=== PATIENT | female | born 1975 | race Caucasian/White ===

== ENCOUNTER 2019-10-22 19:29 | Emergency (ER) | payer BC, SELFPAY ==
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
[2019-10-22 19:37] VITALS: BP 161/74; PULSE 106; RESP 16; TEMP 36.3; O2SAT 100; BMI 29.7
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
[2019-10-22] MEDS: HYDROMORPHONE 0.5 MG INJ IV (19:52)
[2019-10-22] MEDS: SODIUM CHLORIDE 0.9% 1,000 ML 125 ML IV (19:55)
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
[2019-10-22 20:00] LABS: Add Manual Diff / Slide Review NO; Basophils Absolute Auto 100 /uL (0-100); Basophils Percent Auto 0.3 % (0-2); Eosinophils Absolute Auto 100 /uL (0-450); Eosinophils Percent Auto 0.6 % (2-4); Hematocrit 37.5 % (36-46); Hemoglobin 12.6 g/dL (12.0-16.0); Lymphocytes Absolute Auto 1400 /uL (1100-4500); Lymphocytes Percent Auto 7.3 % (25-40); Mean Corpuscular HGB Conc 33.6 % (30-36); Mean Corpuscular Volume 95.5 fL (80-100); Monocytes Absolute Auto 1100 /uL (0-900); Monocytes Percent Auto 5.4 % (3-14); Neutrophils Absolute Auto 17100 /uL (1500-7000); Neutrophils Percent Auto 86.4 % (50-75); Platelet Count 376 X10^3/uL (150-400); Red Blood Cell Count 3.93 X10^6/uL (4.0-5.2); Red Cell Distribution Width 13.3 % (11.6-14.8); White Blood Cell Count 19.8 X10^3/uL (4.5-11.0)
[2019-10-22 20:16] LABS: Blood Urea Nitrogen 7 mg/dL (7-17); Calcium 9.2 mg/dL (8.4-10.2); Carbon Dioxide 21 mmol/L (22-32); Chloride 103 mmol/L (98-107); Estimated Glomerular Filt Rate > 60.0 mL/min (>60); Glucose 141 mg/dL (70-100); HEMOLYSIS < 15 (0-50); Potassium 3.5 mmol/L (3.4-5.1); Sodium 133 mmol/L (137-145)
[2019-10-22 21:02] LABS: Bacteria Urine Few (2-10); Culture Indicated Urine Specimen Cultured; RBC Urine 0-1/HPF (0-5/HPF); Squamous Epithelial Cell Urine 0-1 /HPF (0-5/HPF); WBC Urine 5-10/HPF (0-5/HPF)
[2019-10-22] MEDS: HYDROCODONE/ACET 5/325 PREPACK 1 BOTTLE MISC (21:23)
[2019-10-22] MEDS: ONDANSETRON 4 MG ODT PREPACK 1 BOTTLE MISC (21:23)
[2019-10-22 21:29] VITALS: BP 146/73; PULSE 88; RESP 16; O2SAT 99
== END 2019-10-22 21:29 | disposition home or self-care (01) ==
PROVIDERS: Emergency Provider Emergency Medicine
DX: S30.1XXA Contusion of abdominal wall, initial encounter (principal); I10 Essential (primary) hypertension; E11.9 Type 2 diabetes mellitus without complications; M54.9 Dorsalgia, unspecified; Y93.79 Activity, other specified sports and athletics; W22.8XXA Striking against or struck by other objects, initial encounter
CPT/HCPCS: 36415; 71260; 74177; 80048; 81003; 81015; 81025; 85025; 87077; 87086; 87186; 96361; 96374; 99284; J1170

== ENCOUNTER → 2020-02-16 16:03 | Outpatient (CLI) | payer BC, SELFPAY ==
--- NOTE | 2020-02-16 16:06 | DI.MRI.S_ITS ---
PROCEDURE: MR PELVIS WO/W CON INDICATIONS: Eval Lg Left Ovarian Mass seen on CT TECHNIQUE: Coronal HASTE, sagittal breath-hold T2 FSE; axial T1 FSE with and without fat saturation through the pelvis. Optional long- and short-axis uterine nonbreath-hold T2 FSE through the uterus. Sagittal or axial dynamic VIBE during administration of contrast. Post-contrast axial or coronal VIBE/2-D FLASH with fat saturation from the iliac crests to the symphysis. Optional diffusion weighted imaging and ADC may be performed. COMPARISON: [facility], CR, CHEST 2 VIEW, 03/26/2016, 22:17. [facility], US, US PELVIC COMPLETE, 01/19/2020, 8:46. [facility], CT, CT CHEST ABD PEL W CON, 10/22/2019, 19:44. FINDINGS: Image quality: Excellent. Uterus: Uterus is normal in size. Endometrium is normal in thickness. Junctional zone is normal in thickness at 12 mm or less. Adnexa: The left ovary is not seen as a normal structure. There is a large solid mass at the left adnexa measuring up to 6.4 cm AP, 7.1 cm craniocaudad, and 5.6 cm transverse. By appearance this structure is not exophytic from the serosal surface of the left uterus, but rather appears centered on the expected position of the left ovary. This shows heterogeneous internal enhancement, is not associated with adjacent adenopathy, and no distant metastatic disease is found. What appears to be a right-sided posteriolateral lower uterine segment myometrial intramural fibroid also is seen, and measures up to 3.1 x 2.6 cm. The uterus appears anteverted. It also appears somewhat rightward deviated within the lower pelvis by mass effect from the left-sided mass, and several small nabothian cysts are seen at the cervix.. Urinary system: Bladder wall is normal in thickness. Distal ureters are non distended. Urethra appears normal in morphology. Nodes and vessels: No pelvic or inguinal adenopathy by size criteria. Iliac vessels are normal in size. Bowel and peritoneum: No pathologic free pelvic fluid. Inferior colon and small bowel loops are normal in caliber. Soft tissues: No inguinal hernias. No findings of pelvic floor incompetence in the absence of provocation. Bones: Marrow demonstrates normal overall signal. IMPRESSION: Large heterogeneous ovoid right adnexal solid mass, enhancing, measuring up to 6.4 x 7.1 x 5.6 cm, presumably ovarian in origin. Presumed malignancy. Small right posterolateral lower uterine segment intramural fibroid incidentally noted. No adenopathy or evidence of peritoneal carcinomatosis is found. Dictated by: Dany Bhatti M.D. on 02/17/2020 at 9:23 Approved by: Dany Bhatti M.D. on 02/17/2020 at 9:40
== END ==
PROVIDERS: PCP Physician Assistant; Referring Provider Obstetrics & Gynecology; Visit Provider Obstetrics & Gynecology
DX: N83.8 Other noninflammatory disorders of ovary, fallopian tube and broad ligament (principal); R19.09 Other intra-abdominal and pelvic swelling, mass and lump; R93.5 Abnormal findings on diagnostic imaging of other abdominal regions, including retroperitoneum
CPT/HCPCS: 72197

== ENCOUNTER → 2020-02-24 17:03 | Outpatient (CLI) | payer BC, SELFPAY ==
[2020-02-24 18:22] LABS: Cancer Antigen 125 6.2 U/mL (0-35)
[2020-02-24 18:25] LABS: Carcinoembryonic Antigen < 0.3 ng/mL (0.1-3.0)
[2020-02-25 07:08] LABS: Cancer (Carbohydrate) Ag 19-9 4 U/mL (0-35)
[2020-02-27 13:09] LABS: Human Epididymis Prot 4 60.5 pmol/L (0.0-63.6)
== END ==
PROVIDERS: PCP Physician Assistant; Referring Provider Obstetrics & Gynecology; Visit Provider Obstetrics & Gynecology
DX: N83.8 Other noninflammatory disorders of ovary, fallopian tube and broad ligament (principal)
CPT/HCPCS: 36415; 82378; 86301; 86304; 86305

== ENCOUNTER 2024-05-30 08:01 | Emergency (ER) | payer OTHER, SELFPAY ==
[2024-05-30] VITALS (18 sets, daily range): BP systolic 128–176; BP diastolic 62–92; PULSE 95–123; RESP 16–21; TEMP 36.7; O2SAT 96–100; BMI 26.6
--- NOTE | 2024-05-30 08:13 | EKG_ITS ---
[address] [address] Test Date: 2024-05-30 Pat Name: Mary Lincoln Department: Room: Gender: Female [employer] Director: INA : 1975 Requested By: Order Number: [id number] Reading MD: Tristan Shabazz Measurements Intervals [place] Rate: 117 P: 50 [place]: 122 QRS: 6 QRSD: 78 T: 41 QT: 334 QTc: 465 Interpretive Statements Sinus tachycardia with occasional premature ventricular complexes Electronically Signed On 06-01-2024 18:55:59 PST by Tristan Shabazz
--- NOTE | 2024-05-30 08:22 | ED_ITS ---
HPI - Arrhythmia/Palpitations General Chief Complaint: Arrhythmia/Palpitations Stated Complaint: Heart beating hard Time Seen by Provider: 05/30/24 08:12 Source: patient Mode of arrival: Ambulatory History of Present Illness HPI narrative: Patient here for constant palpitations since yesterday morning. Pain no syncope no dyspnea. No changes in medication for blood pressure cholesterol or diabetes. No history of thyroid problems. No family history of arrhythmia or heart problems. Denies any new stressors in life. No recent illness nausea vomiting diarrhea or risks for dehydration. No black or bloody stools. No polyuria polydipsia. Patient does have history of diabetes hypertension hyperlipidemia. Denies any previous cardiac problems. No prior history of blood clots in legs or lungs. Denies any nausea sweating or dyspnea. Related Data Home Medications Medication Instructions Recorded Confirmed apple cider vinegar 300 mg tablet 300 mg PO BID 01/19/20 05/30/24 flaxseed oil 1,000 mg capsule 1,000 mg PO DAILY 01/19/20 05/30/24 ([place]-3 Flaxseed Oil) lisinopril 5 mg tablet 5 mg PO DAILY 01/19/20 05/30/24 mecobalamin (vitamin B12) 1,000 1,000 mcg PO DAILY 01/19/20 05/30/24 mcg chewable tablet metformin 500 mg tablet 500 mg PO BID 01/19/20 05/30/24 rosuvastatin 10 mg tablet 10 mg PO ONCE PM cholesterol 05/30/24 05/30/24 Previous Rx's Medication Instructions Recorded metoprolol succinate 25 mg capsule 25 mg PO DAILY #30 ea 05/30/24 sprinkle, ext. release 24 hr Allergies Allergy/AdvReac Type Severity Reaction Status Date / Time No Known Drug Allergies Allergy Unverified 01/19/20 08:26 Review of Systems Review of Systems Narrative: GENERAL: Negative chills, fatigue, malaise, fever, sweats. HEENT: Negative sinus pain, ear pain, sore throat RESPIRATORY: Negative dyspnea, cough CARDIOVASCULAR: Negative chest pain, positive palpitations GASTROINTESTINAL: Negative nausea, vomiting, abdominal pain : Negative dysuria, frequency, hematuria MUSCULOSKELETAL: Negative muscle or bony pain SKIN: Negative rash, skin lesions NEUROLOGIC: Negative weakness, numbness ROS Unobtainable: All systems reviewed & are unremarkable except as noted in HPI and below Patient History Medical History (Updated 05/30/24 @ 14:00 by Viry Hartley MD) Vision disorder Acne Trouble breathing Chicken pox Family History (Updated 01/19/20 @ 21:42 by Matilde Gamino) Father Diabetes mellitus Hypertension Hyperlipidemia Mother Hyperlipidemia Social History Smoking Status: Former smoker Smoking Status: Former smoker Exam Narrative Exam Narrative: GENERAL: in no distress, not toxic not dyspneic HEAD: Normocephalic. EYES: Pupils equal round ENT: Mucous membranes moist. NECK: Trachea midline. No thyromegaly CARDIOVASCULAR: Regular rate and rhythm, is tachycardic, no murmurs RESPIRATORY: Clear to auscultation. Breath sounds equal bilaterally. No wheezes, rales, or rhonchi. GASTROINTESTINAL: Abdomen soft, non-tender EXTREMITIES: No gross deformities. BACK: No flank tenderness. NEURO: AOx4. Clear speech SKIN: Warm and dry PSYCH: Not anxious, is cooperative Initial Vital Signs Initial Vital Signs: Vital Signs Pulse Rate 123 H 05/30/24 08:10 Pulse Oximetry 100 05/30/24 08:10 Course Orders Ordered: Discontinued Medications Sodium Chloride (Normal Saline 0.9%) 1,000 mls @ 1,000 mls/hr IV BOLUS ONE Stop: 05/30/24 09:30 Last Infusion: 05/30/24 09:50 Dose: Infused Documented By: Admin: 05/30/24 08:47 Dose: 1,000 mls/hr Documented By: CYDNEY Metoprolol Succinate (Metoprolol Er 25 Mg Tablet) 25 mg PO NOW ONE Stop: 05/30/24 12:43 Last Admin: 05/30/24 12:46 Dose: 25 mg Documented By: JEFFY Vital Signs Vital signs: Vital Signs - 8 hr 05/30/24 08:10 05/30/24 08:11 05/30/24 08:11 Temperature Pulse Rate 123 H 122 H Respiratory Rate Blood Pressure 176/92 H Pulse Oximetry 100 100 Oxygen Delivery Method 05/30/24 08:13 05/30/24 08:30 05/30/24 08:30 Temperature 98.1 F Pulse Rate 121 H 110 H Respiratory Rate 20 19 Blood Pressure 176/91 H 161/77 H Pulse Oximetry 100 97 Oxygen Delivery Method Room Air 05/30/24 09:00 05/30/24 09:00 05/30/24 09:30 Temperature Pulse Rate 109 H Respiratory Rate 16 Blood Pressure 137/65 151/67 H Pulse Oximetry 98 Oxygen Delivery Method 05/30/24 09:30 05/30/24 09:57 05/30/24 09:57 Temperature Pulse Rate 109 H 111 H Respiratory Rate 20 19 Blood Pressure 135/75 Pulse Oximetry 98 99 Oxygen Delivery Method 05/30/24 10:00 05/30/24 10:00 05/30/24 10:30 Temperature Pulse Rate 104 H Respiratory Rate 17 Blood Pressure 132/69 128/66 Pulse Oximetry 97 Oxygen Delivery Method 05/30/24 10:30 05/30/24 11:00 05/30/24 11:00 Temperature Pulse Rate 107 H 106 H Respiratory Rate 20 Blood Pressure 134/63 Pulse Oximetry 97 96 Oxygen Delivery Method 05/30/24 11:30 05/30/24 11:30 05/30/24 12:00 Temperature Pulse Rate 106 H Respiratory Rate 18 Blood Pressure 147/64 H 133/66 Pulse Oximetry 98 Oxygen Delivery Method Room Air 05/30/24 12:00 05/30/24 12:30 05/30/24 12:30 Temperature Pulse Rate 101 H 106 H Respiratory Rate 18 Blood Pressure 132/62 Pulse Oximetry 97 98 Oxygen Delivery Method Room Air 05/30/24 12:46 05/30/24 13:00 05/30/24 13:00 Temperature Pulse Rate 109 H 101 H Respiratory Rate 20 Blood Pressure 132/62 137/76 Pulse Oximetry 98 Oxygen Delivery Method Room Air 05/30/24 13:29 Temperature Pulse Rate 95 H Respiratory Rate Blood Pressure 130/67 Pulse Oximetry Oxygen Delivery Method MDM - Arrhythmia/Palpitations Lab Data 05/30/24 08:25 05/30/24 08:25 Labs: Lab Results 05/30/24 05/30/24 Range/Units 08:25 10:00 WBC 11.4 H (4.5-11.0) X10^3/uL RBC 4.15 (4.0-5.2) X10^6/uL Hgb 14.4 (12.0-16.0) g/dL Hct 41.8 (36-46) % MCV 100.7 H (80-100) fL MCH 34.6 H (26-34) PG MCHC 34.4 (30-36) % RDW 15.2 H (11.6-14.8) % Plt Count 227 (150-400) X10^3/uL Neut % (Auto) 79.3 H (50-75) % Lymph % (Auto) 10.5 L (25-40) % [place] % (Auto) 7.5 (3-14) % Eos % (Auto) 2.3 (2-4) % Baso % (Auto) 0.4 (0-2) % Neut # (Auto) 9000 H (5636-5383) /uL Lymph # (Auto) 1200 (6295-9327) /uL [place] # (Auto) 900 (0-900) /uL Eos # (Auto) 300 (0-450) /uL Baso # (Auto) 0 (0-100) /uL PT 11.4 (9.4-12.5) SECONDS INR 1.0 (0.9-1.3) APTT 30 (25.1-36.5) SECONDS D-Dimer 296 (<500) ng/ml Sodium 134 L (137-145) mmol/L Potassium 4.3 (3.4-5.1) mmol/L Chloride 99 (98-107) mmol/L Carbon Dioxide 18 L (22-32) mmol/L BUN 4 L (7-17) mg/dL Creatinine 0.30 L (0.52-1.04) mg/dL Estimated GFR > 60 (>60) mL/min BUN/Creatinine Ratio 13.3 (6-22) Glucose 309 H (70-100) mg/dL Calcium 9.7 (8.4-10.2) mg/dL Magnesium 1.4 L (1.6-2.3) mg/dL Total Bilirubin 2.0 H (0.2-1.3) mg/dL AST 78 H (14-36) IU/L ALT 85 H (<35) IU/L Alkaline Phosphatase 122 (38-126) U/L Total Creatine Kinase 22 L (30-135) U/L Troponin I < 0.012 (0.01-0.034) ng/mL Total Protein 6.9 (6.3-8.2) g/dL Albumin 4.5 (3.5-5.0) g/dL Globulin 2.4 (1.7-4.1) g/dL Albumin/Globulin Ratio 1.9 (1.0-2.8) TSH 1.47 (0.47-4.68) uIU/mL U Opiates 300ng/mL cut Negative (Negative) Ur Oxycodone Screen Negative (Negative) Urine Methadone Screen Negative (Negative) Ur Barbiturates Screen Negative (Negative) U Tricyclic Antidepress Negative (Negative) Ur Phencyclidine Scrn Negative (Negative) Ur Amphetamines Screen Negative (Negative) U Methamphetamines Scrn Negative (Negative) Ur MDMA Scrn (Ecstasy) Negative (Negative) U Benzodiazepines Scrn Negative (Negative) Urine Cocaine Screen Negative (Negative) U Marijuana (THC) Screen Negative (Negative) Urine pH Normal (Normal) Urine Specific [place] Normal (Normal) Ur Creatinine Normal (Normal) Imaging Data Chest x-ray: Radiologist's Impresson: [address] [address] XRay Report Signed Patient: Esau Velazquez MR#: [id number] : 1975 Acct:[id number] Age/Sex: 49 / F Date of Service: 05/30/24 Loc: ED Accession Number: [id number] Procedure: XR chest 1V Ordering Provider: Viry Hartley MD PROCEDURE: XR CHEST 1V INDICATIONS: Chest pain TECHNIQUE: One view of the chest was acquired. COMPARISON: None. FINDINGS: Surgical changes and devices: None. Lungs and pleura: Lungs are clear. No pleural effusions or pneumothorax. Mediastinum: Mediastinal contours appear normal. Heart size is normal. Bones and chest wall: No suspicious bony lesions. Overlying soft tissues appear unremarkable. IMPRESSION: No acute cardiopulmonary abnormality is seen. Dictated by: Tito Vega M.D. on 05/30/2024 at 9:38 Approved by: Tito Vega M.D. on 05/30/2024 at 9:39 Echocardiogram: Radiologist's Impresson: [address] [address] Echocardiography Report Signed Patient: Esau Velazquez MR#: [id number] : 1975 Acct:[id number] Age/Sex: 49 / F Date of Service: 05/30/24 Loc: ED Accession Number: [id number] Procedure: EC echo doppler complete Ordering Provider: Viry Hartley MD [place] +---------+ Hospital : : [address] [place] [address] . : : [place] : : [id number] : : Phone: [phone] Echocardiogram Report + + :Name: ESAU VELAZQUEZ Study Date: 05/30/2024 Height: 67 in : :[facility] ReadingLocation: Weight: 170 lb : : Gender: Female BSA: 1.9 m2 : :: 1975 Age: 49 yrs BP: 132/69 mmHg: :Reason For Study: CHEST PAIN : :Ordering Physician: SHIRAZ, : :VIRY Performed By: Juancarlos Dong : :Referring: Provider Jhony Lakhani : + + Interpretation Summary The patient was in sinus tachycardia with heart rates between 103-107 bpm during the exam. The left ventricle is normal in size. The ejection fraction is estimated to be 65-70%. The right ventricle is normal in size and function. No significant valvular pathology seen Procedure: A two-dimensional transthoracic echocardiogram with color flow and Doppler was performed. The study quality was technically good. There is no prior echocardiogram noted for this patient. The patient was in sinus tachycardia with heart rates between 103-107 bpm during the exam. Left Ventricle: The left ventricle is normal in size. There is normal left ventricular wall thickness. There is no ventricular septal defect visualized. The ejection fraction is estimated to be 65-70%. There are no focal wall motion abnormalities. MV E/A: 1.3 Med Peak E' Reynold: 6.4 cm/sec E/E' med: 13.9. Right Ventricle: The right ventricle is normal in size and function. Atria: The left atrial size is normal. Right atrial size is normal. There is no Doppler evidence for an interatrial shunt. Mitral Valve: The mitral valve is normal in structure and function. There is trace mitral regurgitation. Aortic Valve: The aortic valve is trileaflet. The aortic valve opens well. There is no aortic valve stenosis. No aortic regurgitation is present. Tricuspid Valve: The tricuspid valve leaflets are thin and pliable. There is trace tricuspid regurgitation. Pulmonary artery pressures cannot be estimated because of the lack of a measurable TR jet velocity. Pulmonic Valve: The pulmonic valve is not well visualized. There is no pulmonic valvular regurgitation. Great Vessels: The aortic root is normal size. The dimensions of the ascending aorta are normal. The pulmonary is not well visualized. The inferior vena cava was not visualized. Pericardium/ Pleura There is no pericardial effusion. There is an anterior echo-free space consistent with a fat pad. There is no pleural effusion. MMode/2D Measurements & Calculations LVIDd: 4.6 cm LVOT diam: 1.9 cm LVIDs: 3.5 cm Ao root diam: 3.3 cm FS: 24.4 % asc Aorta Diam: 2.9 cm EPSS: 0.54 cm Ao Arch Diam (Prox Trans): 2.6 cm IVSd: 1.0 cm LVPWd: 1.0 cm LV blakely. diameter/BSA (cm/m^2): 2.5 LV sys. diameter/BSA (cm/m^2): 1.9 LA A2 area: 16.0 cm2 RA long axis: 4.1 cm LA A4 area: 14.4 cm2 RA area: 12.4 cm2 LA length (vol): 4.8 cm RA vol: 31.4 ml LA vol: 40.9 ml RA : 16.7 ml/m2 LA vol index: 21.7 ml/m2 RVD1 (basal): 3.7 cm RVD2 (mid): 2.8 cm TAPSE: 2.0 cm Doppler Measurements & Calculations Ao V2 max: 133.2 cm/sec LVOT Max Reynold: 116.2 cm/sec Ao V2 mean: 89.7 cm/sec LV V1 max P.4 mmHg Ao max P.1 mmHg LV V1 VTI: 18.6 cm Ao mean P.6 mmHg TAURUS(I,D): 2.4 cm2 Ao V2 VTI: 22.0 cm TAURUS(V,D): 2.5 cm2 sev ratio: 0.84 TAURUS indexed to BSA (cm^2/m^2): 1.3 MV E max reynold: 89.5 cm/sec PA V2 max: 74.4 cm/sec MV A max reynold: 71.3 cm/sec PA V2 mean: 55.2 cm/sec MV E/A: 1.3 PA mean P.3 mmHg Med Peak E' Reynold: 6.4 cm/sec PA pr(Accel): 29.3 mmHg E/E' med: 13.9 Lat Peak E' Reynold: 8.9 cm/sec E/E' lat: 10.1 E/e' average: 12.0 MV dec time: 0.13 sec SV(LVOT): 53.5 ml Reading Physician:11:49 AM [facility] Narrative Medical decision making narrative: Patient here for constant palpitations since yesterday morning. Pain no syncope no dyspnea. No changes in medication for blood pressure cholesterol or diabetes. No history of thyroid problems. No family history of arrhythmia or heart problems. Denies any new stressors in life. No recent illness nausea vomiting diarrhea or risks for dehydration. No black or bloody stools. No polyuria polydipsia. Patient does have history of diabetes hypertension hyperlipidemia. Denies any previous cardiac problems. No prior history of blood clots in legs or lungs. Denies any nausea sweating or dyspnea. After history and exam, exam is reassuring. EKG CBC CMP D-dimer troponin TSH magnesium levels ordered. Echocardiogram ordered., chest imaging pending D- dimer results., normal saline [facility] Medical records reviewed: No recent visit for this complaint Differential considered: Includes but not limited to AFib a flutter SVT sinus tachycardia hyperthyroidism pulmonary embolism valvular disease Lab Test results independently reviewed as above. Pertinent findings: WBC 11.4 hemoglobin 14.4 sodium 134 potassium 4.3 calcium 9.7 D-dimer 296 INR 1.0 troponin less than 0.012 AST 78 ALT 85 D-dimer 296 TSH 1.47 magnesium 1.4 Independently reviewed EKG sinus tachycardia with PVC rate 117 Imaging studies independently reviewed: Chest x-ray no acute finding, echocardiogram no acute finding, ejection fraction 65% Consultations: 12:30 p.m.. Spoke with cardiology services [facility], Dr. Leal, recommend starting patient on metoprolol 25 mg succinate daily. He has reviewed EKG as well as echocardiogram. They are reassuring. Patient to follow up with their office and primary care as well. Treatments: Normal saline, metoprolol succinate 25 mg Re-evaluations: 2:01 p.m.. Patient feeling much better after metoprolol. Up and walk to the bathroom and came back and placed back on a monitor. Her heart rate 101 however she feels much better. Return precautions reviewed. She desires discharge home. Discussion: Appropriate for discharge home exam is reassuring. Return precautions reviewed with patient. Not toxic at discharge. They desire discharge home. Father at bedside. Heart rate has improved with metoprolol. Cardiology service was contacted for medication recommendations. Echocardiogram reassuring. Diagnosis: Palpitations Discharge Plan Departure Patient Disposition: Home Clinical Impression: Palpitations Instructions: DI for Arrhythmias Activity Restrictions/Additional Instructions: Your exam and laboratory studies are reassuring. Cardiology service was contacted today and recommend to start metoprolol daily. First dose was given today. Prescription provided for you. Work note provided for you. Please see family doctor next week for re-evaluation call please call provided cardiology office as well for follow up. Please decrease caffeine use in your diet. Return if worse if any questions or concerns Prescriptions: New metoprolol succinate 25 mg capsule,sprinkle,ER 24hr 25 mg PO DAILY Qty: 30 0RF No Action metformin 500 mg tablet 500 mg PO BID lisinopril 5 mg tablet 5 mg PO DAILY mecobalamin (vitamin B12) 1,000 mcg tablet,chewable 1,000 mcg PO DAILY apple cider vinegar 300 mg tablet 300 mg PO BID flaxseed oil [[place]-3 Flaxseed Oil] 1,000 mg capsule 1,000 mg PO DAILY Rx Instructions: administer with a meal rosuvastatin 10 mg tablet 10 mg PO ONCE PM Referrals: Ginna Mei PA-C [Primary Care Provider] - Fuad Leal MD [Physician] - Stand Alone Forms: Patient Portal/API/Survey, Work Release Note
[2024-05-30 08:34] LABS: Add Manual Diff / Slide Review NO; Basophils Absolute Auto 0 /uL (0-100); Basophils Percent Auto 0.4 % (0-2); Eosinophils Absolute Auto 300 /uL (0-450); Eosinophils Percent Auto 2.3 % (2-4); Hematocrit 41.8 % (36-46); Hemoglobin 14.4 g/dL (12.0-16.0); Lymphocytes Absolute Auto 1200 /uL (1100-4500); Lymphocytes Percent Auto 10.5 % (25-40); Mean Corpuscular HGB Conc 34.4 % (30-36); Mean Corpuscular Hemoglobin 34.6 PG (26-34); Mean Corpuscular Volume 100.7 fL (80-100); Monocytes Absolute Auto 900 /uL (0-900); Monocytes Percent Auto 7.5 % (3-14); Neutrophils Absolute Auto 9000 /uL (1500-7000); Neutrophils Percent Auto 79.3 % (50-75); Platelet Count 227 X10^3/uL (150-400); Red Blood Cell Count 4.15 X10^6/uL (4.0-5.2); Red Cell Distribution Width 15.2 % (11.6-14.8); White Blood Cell Count 11.4 X10^3/uL (4.5-11.0)
[2024-05-30 08:45] LABS: Prothrombin Time 11.4 SECONDS (9.4-12.5)
[2024-05-30 08:47] LABS: D Dimer 296 ng/ml (<500)
[2024-05-30] MEDS: SODIUM CHLORIDE 0.9% 1,000 ML 1000 ML IV (08:47)
[2024-05-30 08:48] LABS: Alanine Aminotransferase 85 IU/L (<35); Albumin 4.5 g/dL (3.5-5.0); Albumin Globulin Ratio 1.9 (1.0-2.8); Alkaline Phosphatase 122 U/L (38-126); Aspartate Aminotransferase 78 IU/L (14-36); BUN Creatinine Ratio 13.3 (6-22); Blood Urea Nitrogen 4 mg/dL (7-17); Calcium 9.7 mg/dL (8.4-10.2); Carbon Dioxide 18 mmol/L (22-32); Chloride 99 mmol/L (98-107); Creatine Kinase 22 U/L (30-135); Estimated Glomerular Filt Rate > 60 mL/min (>60); Globulin 2.4 g/dL (1.7-4.1); Glucose 309 mg/dL (70-100); HEMOLYSIS < 15 (0-50); PTT Partial Thromboplastin Tim 30 SECONDS (25.1-36.5); Potassium 4.3 mmol/L (3.4-5.1); Sodium 134 mmol/L (137-145); Total Protein 6.9 g/dL (6.3-8.2)
[2024-05-30 08:59] LABS: Magnesium 1.4 mg/dL (1.6-2.3)
[2024-05-30 09:01] LABS: Troponin I < 0.012 ng/mL (0.01-0.034)
--- NOTE | 2024-05-30 09:13 | DI.RAD.S_ITS ---
PROCEDURE: XR CHEST 1V INDICATIONS: Chest pain TECHNIQUE: One view of the chest was acquired. COMPARISON: None. FINDINGS: Surgical changes and devices: None. Lungs and pleura: Lungs are clear. No pleural effusions or pneumothorax. Mediastinum: Mediastinal contours appear normal. Heart size is normal. Bones and chest wall: No suspicious bony lesions. Overlying soft tissues appear unremarkable. IMPRESSION: No acute cardiopulmonary abnormality is seen. Dictated by: Tito Vega M.D. on 05/30/2024 at 9:38 Approved by: Tito Vega M.D. on 05/30/2024 at 9:39
[2024-05-30 09:19] LABS: Thyroid Stimulating Hormone 1.47 uIU/mL (0.47-4.68)
[2024-05-30 10:12] LABS: UR Morphine/Opiate cutoff 300 Negative (Negative); Ur Creatinine Normal (Normal); Ur Specific Gravity Normal (Normal); Urine Amphetamines Negative (Negative); Urine Barbiturates Negative (Negative); Urine Benzodiazepines Negative (Negative); Urine Cocaine Negative (Negative); Urine MDMA Negative (Negative); Urine Methadone Negative (Negative); Urine Methamphetamines Negative (Negative); Urine Oxycodone Negative (Negative); Urine Phencyclidine Negative (Negative); Urine Tetrahydrocannabinol Negative (Negative); Urine Tricyclic Antidepressant Negative (Negative); Urine pH Normal (Normal)
[2024-05-30] MEDS: METOPROLOL ER 25 MG TABLET PO (12:46)
== END 2024-05-30 13:14 | disposition home or self-care (01) ==
PROVIDERS: Emergency Provider Emergency Medicine; PCP Physician Assistant
DX: R00.2 Palpitations (principal); R07.9 Chest pain, unspecified; R00.0 Tachycardia, unspecified
CPT/HCPCS: 71045; 80053; 80305; 82550; 83735; 84443; 84484; 85025; 85379; 85610; 85730; 93005; 93306; 96360; 99284